=== PATIENT | female | born 1995 ===

== ENCOUNTER 2019-12-15 15:25 | Emergency (ER) | payer OTHER ==
--- NOTE | 2019-12-15 15:41 | PDOC ---
History of Present Illness - General Chief Complaint: Nausea/Vomiting Stated Complaint: N/V/D Time Seen by Provider: 12/15/19 15:30 History Source: Patient Exam Limitations: No Limitations - History of Present Illness Initial Comments: 12/15/19 15:42 24 yo female no sig medical hx presents to the ED for 3 days of vomiting and abdominal pain. Pt went to multiple times over the last 3 days for recurrent symptoms, was given omeprazole and zofran with some minor symptom improvement. Pt reports similar symptoms in the past of significant vomiting over the past 2 years, give GI outpatient but has never followed up. Pt reports using a significant amount of Marijuana at home and was told to stop using but states she continues using it currently. Pt also admits to drinking a significant amount of alcohol 4 days ago. Pt complains of epigastric burning and vomiting with 1 episode of streaks of blood. LMP today. Pt denies SOB, CP, back pain, F/C, changes in urinary habits. Past History - Medical History Allergies/Adverse Reactions: Allergies Allergy/AdvReac Type Severity Reaction Status Date / Time No Known Allergies Allergy Verified 12/15/19 15:30 Home Medications: Ambulatory Orders Omeprazole 20 mg PO DAILY 12/15/19 Ondansetron [Zofran *Odt*] 4 mg SL TID PRN 12/15/19 Review of Systems - Review of Systems Constitutional: Yes: Symptoms Reported HEENTM: Yes: Symptoms Reported Respiratory: Yes: Symptoms reported Cardiac (ROS): Yes: Symptoms Reported ABD/GI: Yes: Symptoms Reported : Yes: Symptoms Reported Musculoskeletal: Yes: Symptoms Reported Integumentary: Yes: Symptoms Reported Neurological: Yes: Symptoms reported *Physical Exam - Physical Exam General Appearance: Yes: Nourished, Appropriately Dressed. No: Apparent Distress HEENT: positive: EOMI Neck: positive: Supple Respiratory/Chest: positive: Lungs Clear, Normal Breath Sounds. negative: Respiratory Distress Cardiovascular: positive: Regular Rhythm, Regular Rate, S1, S2. negative: Edema, JVD, Murmur Vascular Pulses: Dorsalis-Pedis (R): 4+, Doralis-Pedis (L): 4+ Gastrointestinal/Abdominal: positive: Flat, Soft. negative: Pulsatile Mass, Protuberent, Distended, Guarding, Rebound, Tenderness Musculoskeletal: negative: CVA Tenderness Extremity: positive: Normal Capillary Refill, Normal Inspection, Normal Range of Motion Integumentary: positive: Normal Color, Dry, Warm Neurologic: positive: Fully Oriented, Alert Medical Decision Making - Medical Decision Making 12/15/19 15:46 24 yo female no sig medical hx presents to the ED for 3 days of vomiting and abdominal pain. Pt went to multiple times over the last 3 days for recurrent symptoms, was given omeprazole and zofran with some minor symptom improvement. Pt reports similar symptoms in the past of significant vomiting over the past 2 years, give GI outpatient but has never followed up. Pt reports using a significant amount of Marijuana at home and was told to stop using but states she continues using it currently. Pt also admits to drinking a significant amount of alcohol 4 days ago. Pt complains of epigastric burning and vomiting with 1 episode of streaks of blood. LMP today. Pt denies SOB, CP, back pain, F/C, changes in urinary habits. vitals WNL POC neg at the bedside Pt tolerating PO. No tenderness noted on exam. Pt reports frequent episodes of similar symptoms over the past 2 years however, has not stopped using Marijuana and has not followed up with GI after multiple referrals Pt appears well, NAD, vitals stable Discussed using shared decision making with pt for no CT use at this time due to potential for harm and low suspicion for emergent abdominal pathology Pt understands and agrees with plan to continue outpatient management GI and states she will stop using Marijuana Given new GI referral Discharge - Discharge Information Problems reviewed: Yes Clinical Impression/Diagnosis: Cannabinoid hyperemesis syndrome Condition: Good Disposition: HOME - Admission No - Follow up/Referral Referrals: Theron Pierre MD [Non Staff, Medical] - Manish Mclaughlin MD [Staff Physician] - - Patient Discharge Instructions Patient Printed Discharge Instructions: DI for Nausea -- Adult, DI for Vomiting -- Adult Additional Instructions: Please see your Primary Doctor within the next 48 hours. Stop smoking Marijuana completely. Use over the counter pepcid and maalox as discussed. Make the appointment to see the GI Doctor as discussed. Return to the ER for new or concerning symptoms. Thank you - Post Discharge Activity
[2019-12-15] MEDS ORDERED: MAG HYDROX/AL HYDROX/SIMETH -MYLANTA- ORAL SUSPENSION PO ONE (15:47)
[2019-12-15] MEDS ORDERED: MAG HYDROX/AL HYDROX/SIMETH 30 ML UNIT-DOSE CUP ONE (15:49)
--- NOTE | 2019-12-15 16:01 | PDOC ---
Documentation entered by Brennen Alvarez SCRIBE, acting as scribe for Shara Thomas MD. Shara Thomas MD: This documentation has been prepared by the duglasibe, Brennen Alvarez SCRIBE, under my direction and personally reviewed by me in its entirety. I confirm that the documentation accurately reflects all work, treatment, procedures, and medical decision making performed by me. Attending Attestation - Resident Resident Name: [email or web address] - ED Attending Attestation I have performed the following: I have examined & evaluated the patient, The case was reviewed & discussed with the resident, I agree w/resident's findings & plan, Exceptions are as noted - HPI HPI: 12/15/19 15:58 The patient is a 24 year old female with no significant past medical history who presents to the emergency department, sent today from Urgent Care, for evaluation of vomiting that began three days ago. The patient reports persistent nausea, and vomiting (Cannot recall how many episodes) She endorses abdominal pain, worse in the epigastric region, and being unable to keep food down. The patient reports an episode of diarrhea today. The patient went to Urgent Care three days ago for these symptoms for which she received Zofran and omeprazole, which she has been taking to minimal relief. After presenting to Urgent Care again today, she was sent to the ED. She endorses a history of similar symptoms. Patient reports h/o frequent marijuana use. The patient denies chest/back pain, cough, and shortness of breath. Denies fever, chills, and/or any symptoms. Denies any other symptoms. Allergies: NKA Social Hx: The patient reports smoking marijuana. PCP: Dr. Atul Hdz Bachoo - Physicial Exam PE: 12/15/19 15:55 General: well appearing HEENT: NCAT, mmm Abdomen: soft, nt, nd, no rebound, no guarding, no masses - Medical Decision Making 12/15/19 15:55 24 yo F p/w n/v in the setting of regular marijuana use, abdomen non-tender and pt well appearing, currently tolerating liquids, hcg negative, likely cannabinoid induced hyperemesis. No abd tenderness to suggest appy or acute choley. Last BM today and no surgical history so very likely obstruction. Plan: -maalox -d/c with return precautions, counseled on importance of marijuana cessation to help prevent recurrence of symptoms, pt to f/u with GI (already given referral by outside provider) This clinical encounter is taking place during a federal and state health care emergency attributable to the novel [place] Virus pandemic. The Paper Supervisor of the Department of Health and Human Services has declared, pursuant to the Public Health Service Act 319F-3 (42 [place].S[place]C. 247d-6d), that a covered persons activities related to medical countermeasures against COVID-19 will be immune from liability under Federal and State law. Discharge - Discharge Information Problems reviewed: Yes Clinical Impression/Diagnosis: Cannabinoid hyperemesis syndrome Condition: Good Disposition: HOME - Follow up/Referral Referrals: Theron Pierre MD [Non Staff, Medical] - Manish Mclaughlin MD [Staff Physician] - - Patient Discharge Instructions Patient Printed Discharge Instructions: DI for Nausea -- Adult, DI for Vomiting -- Adult Additional Instructions: Please see your Primary Doctor within the next 48 hours. Stop smoking Marijuana completely. Use over the counter pepcid and maalox as discussed. Make the appointment to see the GI Doctor as discussed. Return to the ER for new or concerning symptoms. Thank you - Post Discharge Activity
[2019-12-15 16:02] VITALS: BP 120/89; PULSE 80; TEMP 98.4; BMI 22.9
== END 2019-12-15 16:14 | disposition home or self-care (01) ==
LOC: FER 15:25
DX: F12.288 Cannabis dependence with other cannabis-induced disorder (principal)
CPT/HCPCS: 99283-25